=== PATIENT | male | born 1965 | race Caucasian/White ===

== ENCOUNTER 2016-06-23 14:30 | Observation (INO) | payer OTHER ==
[2016-06-23] MEDS ORDERED: Aspirin Low Dose CHEW TAB* 81 MG PO ONE (14:33)
[2016-06-23 14:59] LABS: Hematocrit 44 % (42-52); Hemoglobin 14.9 g/dl (14.0-18.0); Mean Corpuscular HGB Conc 34 g/dl (31-36); Mean Corpuscular Hemoglobin 29 pg (27-31); Mean Corpuscular Volume 85 fL (80-94); Mean Platelet Volume 9 um3 (7.4-10.4); Red Blood Count 5.17 10^6/ul (4.0-5.4); Red Cell Distribution Width 14 % (10.5-15)
[2016-06-23 15:14] LABS: Albumin 4.4 g/dL (3.2-5.2); BUN/Creatinine Ratio 15.7 (8-20); Calcium 9.4 mg/dL (8.6-10.3); EGFR African American 100.2 (>60); Globulin 3.7 g/dL (2-4); Potassium 3.5 mmol/L (3.5-5.0); Total Bilirubin 0.9 mg/dL (0.2-1.0); Total Protein 8.1 g/dL (6.4-8.9)
[2016-06-23 15:15] LABS: Troponin I 0.01 ng/mL (<0.04)
--- NOTE | 2016-06-23 15:24 | RAD ---
INDICATION: Chest pain. COMPARISON: There are no prior studies available for comparison. TECHNIQUE: A portable view of the chest was obtained. FINDINGS: Cardiac and mediastinal contours appear to be within normal limits. The lungs are clear. No pleural effusion is seen. IMPRESSION: NO EVIDENCE FOR ACUTE DISEASE.
[2016-06-23] MEDS ORDERED: LORazepam INJ* 2 MG/ML 1 ML VIAL IV PUSH ONE (15:30)
[2016-06-23] MEDS ORDERED: Morphine INJ* 4 MG/ML 1 ML SYRINGE IV ONE (15:30)
[2016-06-23] MEDS ORDERED: Iohexol 350* (CONTRAST) 500 ML MDV IV ONE (15:49)
[2016-06-23] MEDS ORDERED: NS 0.9% 1000 ML* 2,000 ML IV ONE (16:27)
--- NOTE | 2016-06-23 16:28 | RAD ---
HISTORY: Hypertension, back pain, chest pain COMPARISONS: None TECHNIQUE: Multiple contiguous axial CT scans were obtained of the chest, abdomen, and pelvis after the administration of intravenous contrast. Coronal and sagittal multiplanar reformations are submitted for review.. Oral contrast was not administered. 3-D volumetric reconstructions are submitted of the aorta FINDINGS: CHEST NECK AND THYROID: The lower neck and thyroid are unremarkable. CHEST WALL: There is no lower cervical, axillary, or supraclavicular lymphadenopathy by size criteria. HEART AND PERICARDIUM: The heart is unremarkable. AORTA AND PULMONARY VASCULATURE: The aorta and pulmonary vasculature are normal. There is no aneurysmal dilatation or intimal flap to suggest aortic dissection. MEDIASTINUM: There is no mediastinal lymphadenopathy by size criteria. POWER: There is no hilar lymphadenopathy by size criteria. AIRWAY AND ESOPHAGUS: The airway is unremarkable, without endobronchial filling defect. The esophagus is grossly normal. LUNG PARENCHYMA: The lungs are clear. PLEURA: No pleural abnormalities are noted. BONES AND SOFT TISSUES: No bone or soft tissue abnormalities are noted. ABDOMEN/PELVIS: LIVER: The liver is diffusely low in attenuation compared to the spleen. There are no focal hepatic parenchymal masses. BILE DUCTS: There is no intrahepatic or extrahepatic biliary dilatation. GALLBLADDER: A gallstone is noted. There is no pericholecystic inflammatory change PANCREAS: The pancreas is normal, without mass or ductal dilatation. SPLEEN: Normal in size and appearance. UPPER GI TRACT: Evaluation of the gastrointestinal tract is limited by incomplete gastric distention. The upper GI tract is unremarkable. SMALL BOWEL \T\ MESENTERY: The small bowel is normal in contour, course, and caliber. There is no obstruction or dilatation. COLON: The colon is normal in contour, course, caliber. There is no pericolonic inflammatory change. ADRENALS: Normal bilaterally. KIDNEYS: The kidneys are normal in shape, size, contour, and axis. There is no hydronephrosis or nephrolithiasis. BLADDER: The bladder is smooth in contour. PELVIC ORGANS: The prostate is diffusely enlarged. The seminal vesicles are symmetric. AORTA: The aorta is normal. IVC: Unremarkable LYMPH NODES: There is no lymphadenopathy by size criteria. ABDOMINAL WALL: There is a small fat-containing umbilical hernia BONES: There are mild diffuse degenerative changes. OTHER: None IMPRESSION: 1. NO CT FINDINGS TO SUGGEST AORTIC DISSECTION. 2. FATTY LIVER. 3. ENLARGED PROSTATE. 4. CHOLELITHIASIS
[2016-06-23] MEDS ORDERED: Acetaminophen TAB* 325 MG PO PRN ×2 (16:45→18:50)
[2016-06-23] MEDS ORDERED: Metoprolol Tartrate TAB* 25 MG PO ONE ×2 (17:03→19:30)
[2016-06-23] MEDS ORDERED: Nitroglycerin 2% OINT* 1 GM PAK TOPICAL SCH (18:00)
[2016-06-23] MEDS: Nitroglycerin 2% OINT* 1 GM PAK TOPICAL SCH (18:28)
[2016-06-23] MEDS ORDERED: Ibuprofen TAB* 600 MG PO PRN (18:51)
[2016-06-23] MEDS ORDERED: hydrALAZINE IV* 20 MG/ML VIAL IV SLOW PU PRN (19:30)
--- NOTE | 2016-06-23 20:06 | ED ---
Brian Nguyen Adam, scribed for Latasha Goddard MD on 06/23/16 at 1508 . HPI Chest Pain - HPI Summary HPI Summary: Pt is a 50 year old male presenting with CP. [facility] today he told his provider that he had CP and was sent to the ED. The CP set on at 10:00 this morning and grew progressively worse. It was at its worst (8/10) at approximately 13:00. The pain has lessened somewhat since then. It is mostly in the front of his chest but it radiates to the back as well. Staying still in one position aggravates the pain. The pt also c/o SOB associated with the CP. He has not had these symptoms before. Pt also reports that he has not eaten anything today but is not hungry. He took his HTN and anxiety medications today. He denies having a stress test in the past year. He denies FMHx of cardiac disease. Negative tobacco/alcohol/drug use. - History of Current Complaint Chief Complaint: EDChestPainROMI Time Seen by Provider: 06/23/16 14:40 Hx Obtained From: Patient Onset/Duration: Started Hours Ago, Atraumatic, Still Present Timing: Constant Initial Severity: Moderate Current Severity: Mild Pain Intensity: 6 Pain Scale Used: 0-10 Numeric Chest Pain Location: Diffuse Chest Pain Radiates: Yes Chest Pain Radiates To:: Back Aggravating Factor(s): Position - Staying still Alleviating Factor(s): Nothing Associated Signs and Symptoms: Positive: Shortness of Breath - Allergy/Home Medications Allergies/Adverse Reactions: Allergies Allergy/AdvReac Type Severity Reaction Status Date / Time No Known Allergies Allergy Verified 06/23/16 15:40 Home Medications: Home Medications NK [No Home Medications Reported] 06/23/16 [History Confirmed 06/23/16] PMH/Surg Hx/FS Hx/Imm Hx Cardiovascular History: Reports: Hx Hypertension Infectious Disease History: No Infectious Disease History: Denies: Traveled Outside the [place] in Last 30 Days - Family History Known Family History: Negative: Cardiac Disease - Social History Occupation: Employed Full-time Lives: Alone Alcohol Use: None Hx Substance Use: No Substance Use Type: Reports: None Hx Tobacco Use: No Smoking Status (MU): Never Smoked Tobacco Review of Systems Positive: Chest Pain Positive: Shortness Of Breath All Other Systems Reviewed And Are Negative: Yes Physical Exam Triage Information Reviewed: Yes Vital Signs On Initial Exam: Initial Vitals BP 164/122 06/23/16 14:40 Vital Signs Reviewed: Yes Appearance: Positive: Well-Appearing, No Pain Distress Skin: Positive: Warm, Skin Color Reflects Adequate Perfusion, Dry Eyes: Positive: EOMI, TOMMIE ENT: Positive: Pharynx normal, TMs normal Neck: Positive: Supple, Nontender Respiratory/Lung Sounds: Positive: Clear to Auscultation, Breath Sounds Present. Negative: Rales, Rhonchi, Wheezes Cardiovascular: Positive: RRR. Negative: Murmur, Rub Abdomen Description: Positive: Nontender, Soft. Negative: Distended, Guarding Bowel Sounds: Positive: Present Musculoskeletal: Positive: Strength/ROM Intact. Negative: Edema Left, Edema Right Neurological: Positive: Sensory/Motor Intact, Alert, Oriented to Person Place, Time, CN Intact II-III Psychiatric: Positive: Affect/Mood Appropriate - Faustina Coma Scale Coma Scale Total: 15 Diagnostics - Vital Signs Vital Signs Temp Pulse Resp BP Pulse Ox 06/23/16 15:00 21 06/23/16 14:53 97.5 F 91 20 164/122 98 06/23/16 14:42 23 06/23/16 14:40 164/122 - Laboratory Lab Results: Lab Results 06/23/16 Range/Units 14:50 WBC 14.0 H (3.5-10.8) 10^3/ul RBC 5.17 (4.0-5.4) 10^6/ul Hgb 14.9 (14.0-18.0) g/dl Hct 44 (42-52) % MCV 85 (80-94) fL MCH 29 (27-31) pg MCHC 34 (31-36) g/dl RDW 14 (10.5-15) % Plt Count 222 (150-450) 10^3/ul MPV 9 (7.4-10.4) um3 Neut % (Auto) 77.5 (38-83) % Lymph % (Auto) 13.3 L (25-47) % [place] % (Auto) 7.9 (1-9) % Eos % (Auto) 0.8 (0-6) % Baso % (Auto) 0.5 (0-2) % Absolute Neuts (auto) 10.9 H (1.5-7.7) 10^3/ul Absolute Lymphs (auto) 1.9 (1.0-4.8) 10^3/ul Absolute Monos (auto) 1.1 H (0-0.8) 10^3/ul Absolute Eos (auto) 0.1 (0-0.6) 10^3/ul Absolute Basos (auto) 0.1 (0-0.2) 10^3/ul Absolute Nucleated RBC 0.01 10^3/ul Nucleated RBC % 0.1 Result Diagrams: 06/23/16 14:50 06/23/16 14:50 Lab Statement: Any lab studies that have been ordered have been reviewed, and results considered in the medical decision making process. - Radiology CXR Radiology Interpretation Completed By: Radiologist - CT C/A/P CT Interpretation Completed By: Radiologist - IMPRESSION: 1. NO CT FINDINGS TO SUGGEST AORTIC DISSECTION. 2. FATTY LIVER. 3. ENLARGED PROSTATE. 4. CHOLELITHIASIS - EKG 14:36 Cardiac Rate: NL - 100 BPM EKG Rhythm: Sinus Rhythm - Normal - Additional Comments Diagnostic Additional Comments: Troponin I - 0.01 Chest Pain Course/Dx - Course Course Of Treatment: 16:43 - Patient agrees to be admitted. - Diagnoses Provider Diagnoses: CHEST PAIN Discharge - Discharge Plan Condition: Stable Disposition: ADMITTED TO [facility] documentation as recorded by the Brian foster Adam accurately reflects the service I personally performed and the decisions made by , Latasha Goddard MD.
[2016-06-23] MEDS: oxyCODONE/Acetamin 5/325 MG* TAB PO PRN (20:15)
[2016-06-23] MEDS: Metoprolol Tartrate TAB* 25 MG PO SCH (20:25)
[2016-06-23] MEDS ORDERED: Temazepam CAP* 15 MG PO PRN (21:00)
[2016-06-23] MEDS: busPIRone TAB* 5 MG PO SCH (21:05)
[2016-06-23] MEDS: Morphine INJ* 2 MG/ML 1 ML SYRINGE IV PRN (21:14)
[2016-06-24] MEDS: oxyCODONE/Acetamin 5/325 MG* TAB PO PRN (00:06)
[2016-06-24] MEDS ORDERED: Nitro Patch/OINT Remove PATCH OFF SCH (02:00)
[2016-06-24] MEDS: Morphine INJ* 2 MG/ML 1 ML SYRINGE IV PRN ×3 (02:20→13:08)
[2016-06-24] MEDS: Nitroglycerin 2% OINT* 1 GM PAK TOPICAL SCH (02:24)
--- NOTE | 2016-06-24 04:08 | HP ---
HISTORY AND PHYSICAL: DATE OF ADMISSION: 06/23/16 PRIMARY CARE PROVIDER: Marie Kelley NP, [facility], [place]; [facility] in [place]. CHIEF COMPLAINT: Chest pain and back pain. HISTORY OF PRESENT ILLNESS: Kendall Alaniz is a 50-year-old male with history of hypertension and anxiety. The patient stated that he decided to treat his hypertension with a vegetarian diet and exercise, but he was not really compliant with his own plans. Eventually, he actually went to see his primary care provider a month ago and was started on Norvasc. He also was placed on buspirone for anxiety. He stated that his blood pressures had been running in the 180s usually and that had been going "for years." The patient also complains of lower back pain with shooting pain in the bilateral legs occasionally, especially when he changes position. Today in the morning, he started experiencing anterior chest pain radiating to the back. Right now, his pain is localized only in the thoracic back. It is associated with change of position and certain positions make it better or worse. The patient stated that when he stands up and moves around, it actually improves a little bit, but when he lies in a supine position, it makes it worse. He denies any shortness of breath. Currently, his chest pain is gone, at least anteriorly, apart from the thoracic back pain as stated above. The patient's initial workup is unremarkable apart from his systolic pressures being in the 190s. He is going to be placed on observation with the diagnosis of chest pain and uncontrolled hypertension. PAST MEDICAL HISTORY: 1. Anxiety. 2. History of sciatica in the past. 3. History of hypertension that had been grossly uncontrolled throughout his life. MEDICATIONS: Include: 1. Norvasc 10 mg daily. 2. Buspirone 5 mg up to 2 times a day. 3. Vitamin D3 50,000 units p.o. daily. ALLERGIES: No known drug allergies. FAMILY HISTORY: Positive in the mother with hypertension and father who because of his "pancreas exploding." SOCIAL HISTORY: The patient denies any tobacco, alcohol, or drug use. He is and lives alone. His mother, Tina Dow, is his surrogate and her phone number is [phone]. She resides in [place]. REVIEW OF SYSTEMS: Please see history of present illness. All the remaining review of systems was completed with the patient and all the 14 systems were reviewed and were otherwise negative. PHYSICAL EXAMINATION GENERAL: The patient is a pleasant 50-year-old male with a BMI of 39.6. The patient is in no acute distress. Awake, alert and oriented x3. VITAL SIGNS: Blood pressure of 197/128, temperature of 97.2, heart rate of 102 , respiratory rate of 20, oxygen saturation 98% on room air. HEENT: Head is atraumatic and normocephalic. Eyes: Pupils are equal and reactive to light and accommodation. Oropharynx clear. Mucosa moist. Dentition absent. NECK: Supple. No JVD. No bruits bilaterally. RESPIRATORY: Clear to auscultation bilaterally. CARDIOVASCULAR: Regular rate and rhythm. No murmur. ABDOMEN: Soft, nontender. Bowel sounds present in all 4 quadrants. Small umbilical hernia present. Nontender to palpation. EXTREMITIES: There is no edema. Pulses are +2 bilaterally. No clubbing or cyanosis. SKIN: No ecchymotic areas or rashes noted. NEUROLOGIC: Speech is clear. Cranial nerves II through XII grossly intact. Motor strength is 5/5 bilaterally. LABORATORY DATA AND STUDIES OBTAINED TODAY INCLUDE: Chest x-ray shows "no acute disease." Chest, abdomen, and pelvis CTA obtained today in the ED. Impression. "No CT findings to suggest aortic dissection. Fatty liver. Enlarged prostate. Cholelithiasis." The patient's EKG showed sinus tachycardia with a heart rate of 100 beats per minute with left axis deviation and nonspecific ST changes in anterolateral leads. There was no old EKG available for comparison. The patient's troponin was 0.01. ASSESSMENT AND PLAN: A 50-year-old male with history of uncontrolled hypertension most of his adult life, who presents with uncontrolled hypertension , back pain that appears positional, as well as anterior chest pain that resolved. In regards to the patient's chest pain. It appears that it was radiating from his back and is also positional. So far his troponins are unremarkable. Nevertheless, the patient, with that extreme hypertension, is at high risk of coronary artery disease. The patient is going to be observed on telemetry monitored bed and he agrees to walk on a treadmill with a stress test in the morning. In regards to the patient's uncontrolled hypertension, the patient is going to be placed on beta kushal, hydralazine, as well as nitroglycerin. I may be able to add on Norvasc in the morning if his blood pressure continues to be an issue. In regards to the patient's anxiety, his buspirone is going to be continued. In regards to the patient's back pain, the patient was going to be provided with ibuprofen, Tylenol, as well as Percocet on a p.r.n. basis. For DVT prophylaxis, the patient is going to be encouraged with ambulation since he is low risk. The patient also has a physique of most likely obstructive sleep apnea. In fact , he did state that he has problems with sleeping and [facility] At this point, it is recommended for the patient to follow up with the [place] in regards to obstructive sleep apnea study as outpatient. Code status is full. TIME SPENT: Approximately 60 minutes was spent on admission of this patient, more than half that time was spent [id number] with the patient during the interview and physical exam. CC: Marie Kelley NP* [id number]/[facility] #: [id number] KRISTIN
[2016-06-24 05:54] LABS: Urine Bacteria Absent (Absent); Urine Bilirubin Negative (Negative); Urine Glucose Negative (Negative); Urine Nitrite Negative (Negative)
[2016-06-24 06:15] LABS: HDL Cholesterol 30.8 mg/dL
[2016-06-24] MEDS: Metoprolol Tartrate TAB* 25 MG PO SCH (08:19)
[2016-06-24] MEDS: busPIRone TAB* 5 MG PO SCH ×2 (08:37→13:43)
[2016-06-24] MEDS ORDERED: amLODIPine TAB* 5 MG PO SCH (09:00)
[2016-06-24 09:20] VITALS: BP 149/90
[2016-06-24] MEDS ORDERED: Regadenoson* 0.4 MG/5 ML SYRINGE ONE (11:39)
[2016-06-24] MEDS ORDERED: Aminophylline IV* 25 MG/ML 10 ML VIAL ONE (11:40)
--- NOTE | 2016-06-24 13:08 | RAD ---
Edited for charges. INDICATION: Chest pain, hypertension, obesity COMPARISON: No relevant prior exams available on the [facility] PACS. TECHNIQUE: 10.30 mCi of Tc-99m Myoview were administered IV. SPECT images of the heart were obtained. Later on the same day, under the direction of Dr. Barry, an exercise stress test was performed. The patient achieved a peak heart rate of 160 bpm, 93 % of the age- predicted maximum. Subsequently, the patient was given an IV injection of 25.000 mCi Tc- 99m Myoview. SPECT images of the heart were obtained and a gated wall motion study was performed. FINDINGS: Gated wall motion images were obtained at stress and demonstrate wall motion to be within normal limits. The calculated left ventricular ejection fraction is 65 % at stress. Estimated LEFT ventricular end diastolic volume is 108 mL. TID 0.80. Diaphragmatic attenuation noted. Based on review of the attenuation corrected and non corrected images the distribution of radiopharmaceutical within the myocardium on the stress and rest images is within normal limits. No fixed or reversible regions of hypoperfusion evident. IMPRESSION: 1. No evidence for stress induced myocardial ischemia or presence of an infarct. 2. Normal left ventricular wall motion and ejection fraction. ASSESSMENT: Low risk. Based on imaging criteria from ACC/AHA 2002 Guideline Update for the Management of Patients With Chronic Stable Angina Table 23. Noninvasive Risk Stratification. MTDD
--- NOTE | 2016-06-25 00:50 | DS ---
DISCHARGE SUMMARY: DATE OF ADMISSION: 06/23/16 DATE OF DISCHARGE: 06/24/16 PRIMARY CARE PROVIDER: BJ Chisholm, from [facility]. DISCHARGE DIAGNOSES: 1. Thoracic back pain, most likely musculoskeletal with low probability cardiac stress test documented on 06/24/16. 2. Uncontrolled hypertension. LABORATORY DATA AND STUDIES PERFORMED DURING THE HOSPITAL STAY: Included fasting lipid profile on 06/24/16, showed triglycerides of 136, cholesterol of 130, LDL of 72, and HDL of 30. The patient's troponin's had been negative throughout his hospital stay. CT angiogram of chest, abdomen, and pelvis obtained on 06/23/16, impression: "No CT findings to suggest aortic dissection. Fatty liver. Enlarged prostate. Cholelithiasis." The patient's D-dimer during his hospital stay was below 200. HOSPITALIZATION COURSE: Kendall Alaniz is a 50-year-old male with history of obesity and known hypertension that was not treated until a month ago when he was started on Norvasc. He also has history of anxiety. He presented to the hospital complaining of severe thoracic back pain radiating to the front. His initial troponins were unremarkable and EKG also did not have any acute changes. It appeared that the patient's pain was musculoskeletal. Despite that , the patient's systolic pressures were in the 180s range and the patient was admitted to further monitor and treatment his hypertension and for stress test in the morning. The patient's stress test was noted to be low risk on . The patient was treated with metoprolol and Norvasc and his blood pressure systolically by the time of discharge was 149. The patient is being discharged home to follow up with his primary care provider, BJ Chisholm, in approximately 4 to 7 days. The patient appears to have acute thoracic back pain, most likely radiculopathy for which he was prescribed 20 tablets of Percocet. I-STOP was checked and the patient did not have any narcotic prescriptions prescribed to him within the past 6 months. MEDICATIONS ON DISCHARGE: 1. Tylenol 650 mg every 4 hours p.r.n. 2. Ibuprofen 600 mg every 6 hours p.r.n. 3. Metoprolol tartrate 25 mg b.i.d. 4. Norvasc 10 mg daily. 5. BuSpar 5 mg 3 times a day. 6. Oxycodone/acetaminophen 5/325 mg 1 tablet every 6 hours p.r.n. The patient was given 20 tablets' prescription total. PHYSICAL EXAMINATION AT DISCHARGE: Unchanged from admission, apart from that the patient's vital signs at discharge were reported at heart rate of 60, respiratory rate 20, oxygen saturation 99% on room air, blood pressure of 149/90 , and temperature of 97.9. Please note that this is a short summary of the patient's hospital stay, please refer to further medical records for details. CC: BJ Chisholm * [id number]/[facility] #: [id number] MTDD
== END 2016-06-24 14:25 | disposition home or self-care (01) ==
LOC: ED 14:30 → OBSVTOIN 16:45 → MEDTELE 16:45 → INTOOBSV 16:45
PROVIDERS: ADMIT Internal Medicine; ATTEND Internal Medicine
DX: M54.6 Pain in thoracic spine (principal); I10 Essential (primary) hypertension; R07.9 Chest pain, unspecified; F41.9 Anxiety disorder, unspecified; R06.02 Shortness of breath; Z79.899 Other long term (current) drug therapy; K76.0 Fatty (change of) liver, not elsewhere classified; N40.0 Benign prostatic hyperplasia without lower urinary tract symptoms; K80.20 Calculus of gallbladder without cholecystitis without obstruction; R00.1 Bradycardia, unspecified
CPT/HCPCS: 36415; 71010; 71275; 74174; 78452; 80053; 80061; 81003; 81015; 83605; 84484; 85025; 85379; 93005; 93017; 96374; 96375; 99284; A9270-GY; A9502; G0378; J0280; J2060; J2270; J2785; Q9967

== ENCOUNTER 2019-01-07 16:17 | Emergency (ER) | payer OTHER ==
--- NOTE | 2019-01-07 17:45 | UC ---
Respiratory Complaint HPI - HPI Summary HPI Summary: Patient presents to urgent care stating he's had a cough productive of yellow- green sputum progressive last 5 weeks. Patient states at times he feels short of breath. Patient states he does have wheezing at times. Patient with sinus congestion postnasal drip. No ear pain. No fevers or chills. Patient does report fatigue. Patient states he been taking DayQuil and NyQuil. Patient did this morning and patient denies chest pain. Patient denies diaphoresis. No headache or vision changes. No sick contacts. Patient does not work near [place]. Patient does smoke. Patient's medications reviewed this visit. Patient is on 3 medications to treat blood pressure that he did take today. - History of Current Complaint Chief Complaint: UCRespiratory Stated Complaint: sinuS CONGESTIO, COUGH, AND CHEST CONGESTION Time Seen by Provider: 01/07/19 17:44 Hx Obtained From: Patient Onset/Duration: Gradual Onset Severity Initially: Mild Severity Currently: Mild Pain Intensity: 2 Pain Scale Used: 0-10 Numeric Character: Cough: Productive Associated Signs And Symptoms: Positive: URI - Allergies/Home Medications Allergies/Adverse Reactions: Allergies Allergy/AdvReac Type Severity Reaction Status Date / Time No Known Allergies Allergy Verified 06/23/16 15:40 Home Medications: Home Medications D-Methorphan/PE/Acetaminophen [Vicks Dayquil Cold & Flu] 1 cap PO Q6H 01/07/19 [ History Confirmed 01/07/19] Tamsulosin CAP* [Flomax CAP*] 0.4 mg PO BID 01/07/19 [History Confirmed 01/07/19 ] amLODIPine TAB* [Norvasc 5 mg TAB*] 5 mg PO BID 01/07/19 [History Confirmed 02/15] PMH/Surg Hx/FS Hx/Imm Hx Previously Healthy: Yes Cardiovascular History: Hypertension - Surgical History Surgical History: None - Family History Known Family History: Negative: Cardiac Disease - Social History Alcohol Use: Rare Substance Use Type: None Smoking Status (MU): Never Smoked Tobacco Review of Systems All Other Systems Reviewed And Are Negative: Yes ENT: Positive: Nasal Discharge, Sinus Congestion, Sinus Pain/Tenderness Respiratory: Positive: Cough Cardiovascular: Negative: Palpitations, Chest Pain Gastrointestinal: Negative: Abdominal Pain, Vomiting, Nausea Neurovascular: Positive: Negative Musculoskeletal: Positive: Negative Neurological: Positive: Negative Is Patient Immunocompromised?: No Physical Exam - Summary Physical Exam Summary: Vital Signs Reviewed: Yes A+Ox3, no distress Eyes: Conjunctiva Clear, TOMMIE. EOM intact and full ENT: Hearing grossly normal TM x 2 clear, turbinates inflammed and boggy, + PND mmoist, uvula midline, no exudate, no erythema Neck: Positive: Supple Respiratory: Positive: No respiratory distress, No accessory muscle use + scattered insp/exp wheeze, speaking full sentences, coarse cough Cardiovascular: RRR nl s1, s2 no m/r CBT <2 sec abd soft + BS nt/nd no guarding, no distension Musculoskeletal Exam: ELLIS x 4 without difficulty Strength Intact, ROM Intact Neurological: Positive: Alert, + sensation throughout Psychological: Positive: Normal Response To examiner Skin: Positive: no rash, no ecchymosis Triage Information Reviewed: Yes Vital Signs: Initial Vital Signs Temp 98.3 F 01/07/19 17:18 Pulse 59 01/07/19 17:18 Resp 18 01/07/19 17:18 BP 201/117 01/07/19 17:18 Pulse Ox 99 01/07/19 17:18 Diagnostics - Radiology No standard instances Radiology Interpretation Completed By: ED Physician - Concern for early left lower lobe infiltrate. Re-Evaluation - Re-Evaluation First Eval Comment: Patient emerged he feels much better following his n neb.. Wheezing improved. Will start patient on an MDI as well as Flonase and albuterol. Secretion precautions discussed. Patient states he does have any of his blood pressure medication. Patient aware that he should follow up with primary ankle medially to her department if there is any concerning symptoms. Patient's arrival, a bedside also states she understands. Respiratory Course/Dx - Course Course Of Treatment: Patient presents to urgent care with progressive congestion postnasal drip and cough for the last 5-6 weeks. Patient states he does have occasional wheezing. Patient states he's been taking DayQuil and NyQuil and today took Sudafed with short-term relief. Patient denies shortness of breath. No chest pain. On exam vital signs show a markedly elevated blood pressure. Patient states his blood pressure is "always high" patient states [facility] and they adjust his medications from time to time. I did have a long conversation with patient about taking decongestants and effect on blood pressure. Patient states he did not know and since he took Sudafed approximately 3 hours prior to my exam. Patient does not have any signs of end organ complaints. No headache vision changes chest pain. Patient denies any hematuria. I did discuss with patient requiring emergent Manuelito which he adamantly refuses. Patient aware of the risks related to high blood pressure and states he's heard this before and he understands them. With respect to today's illness, we'll try a DuoNeb and a chest x-ray. Anticipate will likely put patient on Flonase as well as an antihistamine and antibiotic. Patient comfortable. We'll reassess after treatment. - Differential Dx/Diagnosis Provider Diagnosis: PNA (pneumonia), Hypertension Discharge ED - Sign-Out/Discharge Documenting (check all that apply): Patient Departure All imaging exams completed and their final reports reviewed: No - Discharge Plan Condition: Stable Disposition: HOME Prescriptions: Albuterol HFA INHALER* [Ventolin HFA Inhaler*] 1 - 2 puff INH Q6H PRN #1 mdi PRN Reason: wheeze DOXYcycline CAP(*) [DOXYcycline 100MG CAP(*)] 100 mg PO BID #20 cap Fluticasone NASAL SPRAY 50MCG* [Flonase NASAL SPRAY 50MCG*] 2 spray BOTH NARES DAILY #1 btl Patient Education Materials: Acute Bronchitis (ED), Rhinosinusitis (ED), Hypertension (ED) Referrals: Marie Kelley [Primary Care Provider] - Additional Instructions: - As discussed, the provider that evaluated you today is concerned you may have pneumonia developing on your left lower lung. Your imaging study will be read by a radiologist tomorrow - if there are other findings on your chest radiograph , you will receive a call from a care assembler [employer]. - Take antibiotics and use nasal spray exactly as prescribed - These infections are spread by oral secretions. Do not share eating or drinking utensils. Frequent hand washing is important. Clean items that may get your secretions on them such as cell phones, ipads, computer mouse, television remotes. Once you have been on antbiotics for 2 days, change your pillowcase and your toothbrush - As discussed - your blood pressure is VERY high today - high blood pressures creates risk of strokes, heart attack, and kidney failure. - It is recommended you continue to take your medications EXACTLY as prescribed - Avoid high salt food in your diet - It is recommended you do not take phenylepherine, pseudoephederine - these are found in decongestant medications - It is okay to take Claritin, Evelin, Zyrtec (without the decongestant) - Contact your doctor to schedule a recheck appointment tomorrow. If you develop headache, vision changes, difficulty with speech, weakness, chest pain, or any other concerns it is recommended you contact 911 and go directly to the emergency department - Billing Disposition and Condition Condition: STABLE Disposition: Home
[2019-01-07] MEDS ORDERED: Levalbuterol 0.63MG/3ML NEB* UNIT OF USE INH ONE (17:59)
[2019-01-07 18:04] VITALS: BP 222/128
--- NOTE | 2019-01-08 09:15 | UC ---
- Progress Note Progress Note: Final radiologist reading of chest x-ray from January 07, 2019 comes back as no active cardiopulmonary disease is noted. The provider interpretation of the same date was possible left lower lobe infiltrate patient diagnosed with pneumonia and treated as pneumonia. Nursing to call patient and inform the patient that the radiologist did not see a pneumonia. This does not change the treatment plan and they should continue with the medications as prescribed. Course/Dx - Diagnoses Provider Diagnoses: PNA (pneumonia), Hypertension Discharge ED - Sign-Out/Discharge Documenting (check all that apply): Patient Departure All imaging exams completed and their final reports reviewed: Yes - Discharge Plan Condition: Stable Disposition: HOME Prescriptions: Albuterol HFA INHALER* [Ventolin HFA Inhaler*] 1 - 2 puff INH Q6H PRN #1 mdi PRN Reason: wheeze DOXYcycline CAP(*) [DOXYcycline 100MG CAP(*)] 100 mg PO BID #20 cap Fluticasone NASAL SPRAY 50MCG* [Flonase NASAL SPRAY 50MCG*] 2 spray BOTH NARES DAILY #1 btl Patient Education Materials: Acute Bronchitis (ED), Rhinosinusitis (ED), Hypertension (ED) Referrals: Marie Kelley [Primary Care Provider] - Additional Instructions: - As discussed, the provider that evaluated you today is concerned you may have pneumonia developing on your left lower lung. Your imaging study will be read by a radiologist tomorrow - if there are other findings on your chest radiograph , you will receive a call from a care merchandising team lead. - Take antibiotics and use nasal spray exactly as prescribed - These infections are spread by oral secretions. Do not share eating or drinking utensils. Frequent hand washing is important. Clean items that may get your secretions on them such as cell phones, ipads, computer mouse, television remotes. Once you have been on antbiotics for 2 days, change your pillowcase and your toothbrush - As discussed - your blood pressure is VERY high today - high blood pressures creates risk of strokes, heart attack, and kidney failure. - It is recommended you continue to take your medications EXACTLY as prescribed - Avoid high salt food in your diet - It is recommended you do not take phenylepherine, pseudoephederine - these are found in decongestant medications - It is okay to take Claritin, Evelin, Zyrtec (without the decongestant) - Contact your doctor to schedule a recheck appointment tomorrow. If you develop headache, vision changes, difficulty with speech, weakness, chest pain, or any other concerns it is recommended you contact 911 and go directly to the emergency department - Billing Disposition and Condition Condition: STABLE Disposition: Home
== END 2019-01-07 18:58 | disposition home or self-care (01) ==
LOC: UCEAST 16:17
DX: J18.9 Pneumonia, unspecified organism (principal); I10 Essential (primary) hypertension; R09.82 Postnasal drip; Z79.899 Other long term (current) drug therapy
CPT/HCPCS: 71046; 99212; G0463

== ENCOUNTER 2020-07-13 16:26 | Inpatient (IN) ==
[2020-07-13 18:49] LABS: ABS Eosinophils 0.3 10^3/ul (0-0.6); ABS Lymphocytes 2.1 10^3/ul (1.0-4.8); ABS Monocytes 1.5 10^3/ul (0-0.8); ABS Neutrophils 8.3 10^3/ul (1.5-7.7); Eosinophil % 2.2 %; Hematocrit 42 % (42-52); Hemoglobin 14.6 g/dL (14.0-18.0); Lymphocyte % 17.3 %; Mean Corpuscular HGB Conc 35 g/dL (31-36); Mean Corpuscular Hemoglobin 30 pg (27-31); Mean Corpuscular Volume 86 fL (80-94); Mean Platelet Volume 8.6 fL (7.4-10.4); Nucleated Red Blood Cells % 0.1; Platelet Count 217 10^3/uL (150-450); Red Cell Distribution Width 14 % (10-15); White Blood Count 12.3 10^3/uL (3.5-10.8)
[2020-07-13 19:08] LABS: Troponin I 0.01 ng/mL (<0.03)
[2020-07-13 19:11] LABS: Albumin 4.4 g/dL (3.2-5.2); Albumin/Globulin Ratio 1.3 (1-3); BUN/Creatinine Ratio 24.2 (8-20); C Reactive Protein 1.9 mg/L (<8.01); Calcium 9.5 mg/dL (8.6-10.3); EGFR African American 58.1 (>60); Globulin 3.3 g/dL (2-4); Potassium 3.8 mmol/L (3.5-5.0); Total Bilirubin 0.9 mg/dL (0.2-1.0); Total Protein 7.7 g/dL (6.4-8.9)
[2020-07-13] MEDS ORDERED: Iodixanol (CONTRAST) 320 MG/ML 100 ML SDV IV ONE (21:21)
[2020-07-14] MEDS: Enoxaparin 40 MG/0.4 ML SYR SUBCUT SCH ×2 (00:20→19:49)
[2020-07-14 00:58] LABS: Urine Benzodiazepine Screen None Detected (None Detect); Urine Cannabinoids Screen None Detected (None Detect); Urine Opiates Screen None Detected (None Detect)
[2020-07-14] MEDS: Aspirin EC 81 mg TAB.EC (enteric coated) PO SCH (08:36)
[2020-07-14 09:18] LABS: Hematocrit 40 % (42-52); Hemoglobin 13.9 g/dL (14.0-18.0); Mean Corpuscular HGB Conc 35 g/dL (31-36); Mean Corpuscular Hemoglobin 30 pg (27-31); Mean Corpuscular Volume 87 fL (80-94); Mean Platelet Volume 8.5 fL (7.4-10.4); Platelet Count 194 10^3/uL (150-450); Red Blood Count 4.57 10^6 /uL (4.18-5.48); Red Cell Distribution Width 14 % (10-15); White Blood Count 8.5 10^3/uL (3.5-10.8)
[2020-07-14 09:36] LABS: BUN/Creatinine Ratio 20.3 (8-20); Calcium 9.3 mg/dL (8.6-10.3); EGFR African American 58.1 (>60); Potassium 3.5 mmol/L (3.5-5.0)
[2020-07-14 11:06] LABS: TSH Ultra Thyroid Stim Horm 1.61 mcIU/mL (0.34-5.60)
[2020-07-14 14:11] LABS: Activated Partial Thrombo Time 32.5 seconds (26.0-38.0); INR 1.16 (0.82-1.09)
[2020-07-15 06:50] LABS: ABS Eosinophils 0.3 10^3/ul (0-0.6); ABS Lymphocytes 1.5 10^3/ul (1.0-4.8); ABS Neutrophils 6.5 10^3/ul (1.5-7.7); Eosinophil % 3.5 %; Hematocrit 41 % (42-52); Hemoglobin 14.4 g/dL (14.0-18.0); Lymphocyte % 15.6 %; Mean Corpuscular HGB Conc 35 g/dL (31-36); Mean Corpuscular Hemoglobin 31 pg (27-31); Mean Corpuscular Volume 86 fL (80-94); Mean Platelet Volume 8.8 fL (7.4-10.4); Platelet Count 174 10^3/uL (150-450); Red Blood Count 4.73 10^6 /uL (4.18-5.48); Red Cell Distribution Width 14 % (10-15); White Blood Count 9.4 10^3/uL (3.5-10.8)
[2020-07-15 07:08] LABS: BUN/Creatinine Ratio 18.6 (8-20); Calcium 9.3 mg/dL (8.6-10.3); EGFR African American 54.8 (>60); EGFR Non-African American 45.3 (>60); Potassium 3.5 mmol/L (3.5-5.0)
[2020-07-15] MEDS: Aspirin EC 81 mg TAB.EC (enteric coated) PO SCH (07:56)
[2020-07-15] MEDS ORDERED: Propranolol 80 mg TAB PO SCH (09:00)
[2020-07-15 11:57] VITALS: BP 156/94
[2020-07-17 12:15] LABS: Coagulation Factor V Assay 64 % (70 - 165)
[2020-07-17 12:52] LABS: DRVVT Screen Ratio 1.23 ratio (<1.20); LAC APTT 33 sec (25 - 37); LAC INR 1.2 (0.9-1.1); Prothrombin Time(LAC) 12.9 sec (9.4 - 12.5); Thrombin Time (Bovine), P 23.4 sec
== END 2020-07-15 15:30 | disposition home or self-care (01) | DRG 66 ==
LOC: ED 16:26 → MEDTELE 22:26
PROVIDERS: ADMIT Hospitalist; ATTEND Internal Medicine